=== PATIENT | female | born 1995 | race Caucasian/White ===

== ENCOUNTER 2020-01-30 14:26 | Outpatient (REF) | payer OTHER, SELFPAY ==
[2020-01-30 14:42] LABS: COVID-19 Test Positive (Negative)
== END 2020-01-30 14:27 | disposition home or self-care (01) ==
LOC: HO.EMPCOV 14:26
PROVIDERS: Visit Provider Internal Medicine
DX: Z20.828 Contact with and (suspected) exposure to other viral communicable diseases (principal)
CPT/HCPCS: 87635; C9803

== ENCOUNTER 2020-02-13 11:45 | Outpatient (REF) | payer OTHER, SELFPAY ==
[2020-02-13 13:50] LABS: Hematocrit 44.3 % (37-47); Hemoglobin 14.7 g/dl (12.0-16.0); Mean Corpuscular HGB Conc 33.2 g/dl (31.0-35.0); Mean Corpuscular Hemoglobin 26.9 pg (27.0-33.0); Mean Platelet Volume 9.5 fL (9.4-12.3); Platelet Count 316 X10*3/uL (160-400); Red Blood Count 5.47 X10*6/uL (4.20-5.50); White Blood Count 6.1 X10*3/uL (4.8-10.8)
[2020-02-13 14:33] LABS: Alanine Aminotransferase 61 U/L (0-31); Albumin Level 4.7 g/dL (3.5-5.0); Alkaline Phosphatase 61 U/L (39-117); Anion Gap 14 (12-20); Aspartate Amino Transferase 24 U/L (5-31); Bilirubin Direct 0.3 mg/dL (0.0-0.5); Bilirubin Total 0.7 mg/dL (0.0-1.0); Blood Urea Nitrogen 9 mg/dL (9-16); Calcium 9.1 mg/dL (8.4-10.2); Carbon Dioxide 26 mmol/L (22-29); Chloride 104 mmol/L (96-108); Cholesterol 170 mg/dL; Estimated Glomerular Filt Rate > 60; Glucose Random 84 mg/dL (60-115); HDL Cholesterol 32 mg/dL; LDL Cholesterol Calculated 73 mg/dl; Sodium 139 mmol/L (135-145); Total Protein 7.6 g/dL (6.5-8.0); Triglycerides 327 mg/dL
[2020-02-13 14:43] LABS: TSH reflex Free T4 1.87 mIU/mL (0.32-4.0)
== END 2020-02-13 11:46 | disposition home or self-care (01) ==
LOC: HO.WFDLDS 11:45
PROVIDERS: PCP Hospitalist; Visit Provider Hospitalist
DX: Z00.00 Encounter for general adult medical examination without abnormal findings (principal); Z13.220 Encounter for screening for lipoid disorders; Z13.29 Encounter for screening for other suspected endocrine disorder
CPT/HCPCS: 36415; 80048; 80061; 80076; 84443; 85027

== ENCOUNTER 2020-03-23 09:01 | Outpatient (REF) | payer OTHER, SELFPAY ==
[2020-03-23 09:23] LABS: COVID-19 Test Negative (Negative)
== END 2020-03-23 09:02 | disposition home or self-care (01) ==
LOC: HO.EMPCOV 09:01
PROVIDERS: Visit Provider Internal Medicine
DX: Z20.822 Contact with and (suspected) exposure to COVID-19 (principal)
CPT/HCPCS: 36415; 87635; C9803

== ENCOUNTER 2020-12-17 08:20 | Outpatient (REF) | payer OTHER, SELFPAY ==
[2020-12-17 11:44] LABS: Appearance Urine TURBID; Color Urine YELLOW; Glucose Urine UA NEG (NEG); Leukocyte Esterase Urine NEG (NEG); Nitrite Urine NEG (NEG); Specific Gravity - Urine 1.025 (1.005-1.025); Urine Blood TRACE (NEG); Urine Ketones NEG (NEG); Urine Protein NEG (NEG-TRACE)
[2020-12-17 11:48] LABS: Alanine Aminotransferase 24 U/L (0-31); Albumin Level 4.2 g/dL (3.5-5.0); Alkaline Phosphatase 45 U/L (39-117); Anion Gap 11 (12-20); Aspartate Amino Transferase 14 U/L (5-31); Bilirubin Total 0.6 mg/dL (0.0-1.0); Blood Urea Nitrogen 7 mg/dL (9-16); Carbon Dioxide 21 mmol/L (22-29); Chloride 108 mmol/L (96-108); Estimated Glomerular Filt Rate > 60; Glucose Fasting 97 mg/dL (60-99); Potassium 4.3 mmol/L (3.3-5.1); Sodium 136 mmol/L (135-145)
[2020-12-17 12:05] LABS: TSH reflex Free T4 2.95 uIU/mL (0.32-4.0)
[2020-12-17 12:52] LABS: Amorphous Sediment Urine 3+ /LPF
[2020-12-17 12:53] LABS: Squamous Epithelial Cell Urine 1+ /LPF
[2020-12-17 12:54] LABS: RBC Urine 0-2 /HPF (0); WBC Urine 0 /HPF (0-4)
== END 2020-12-17 08:21 | disposition home or self-care (01) ==
LOC: HO.WFDLDS 08:20
PROVIDERS: Visit Provider Family Medicine
DX: Z00.00 Encounter for general adult medical examination without abnormal findings (principal)
CPT/HCPCS: 36415; 80053; 81001; 84443

== ENCOUNTER → 2021-12-24 09:37 | Outpatient (RCR) | payer OTHER, SELFPAY ==
[2020-01-17 06:45] LABS: COVID-19 Test Negative (Negative)
[2020-01-27 11:15] LABS: COVID-19 Test Negative (Negative); IDNOW Serial# 55D5AD1C
== END | disposition home or self-care (01) ==
LOC: HO.EMPCOV 01-17 06:15
PROVIDERS: Visit Provider Internal Medicine
DX: Z20.828 Contact with and (suspected) exposure to other viral communicable diseases (principal)
CPT/HCPCS: 87635; C9803

== ENCOUNTER 2022-12-18 11:35 | Outpatient (AMB) | payer OTHER, SELFPAY ==
--- NOTE | 2022-12-18 11:39 | MHC.PC.OV ---
Vital Signs 12/18/22 11:40 Height 5 ft 3 in Weight 216 lb 6 oz BMI 38.3 BP 112/66 Blood Pressure Location Lt brachial Position Sitting Respiration 12 Pulse 98 Pulse Source Pulse Oximeter Temp 97.7 F Temp Source Temporal Artery Scan Pulse Oximetry (%) 98 Oxygen Delivery Method Room Air Intake Visit Reasons: Stomach Ache/ Acid reflux Intake Note: Patient is looking to get referral to gastro. Patient states that her stomach pain is like a burning that gets even worse during the night. Patient states that burning sensationg reaches to her sternum area and she experiences alot of bloating. Brush Maker Required: No Accompanied by: Self / Same As Patient Allergies No Known Allergies Allergy (Verified 12/18/22 12:11) Medication List - Last Reconciled 12/18/22 by Luis Pabon CNP No Known Home Meds Tobacco use date assessed: 12/18/22 Dental Screening Dental Screen Date: 12/18/22 Did you have a dental visit in the last 12 months?: No Did you have a dental problem in the last 6 months where you did not have access to dental care?: No Was dental information given to patient?: Yes HPI HPI Comments History of Present Illness Details 26-year-old female presents with complaints of intermittent epigastric pain for almost 1 week. She describes the pain as burning, worse with eating and at night. She reports associated loose stools. She states that Mylanta and Pepto-Bismol have provided temporary relief. No n/v or changes in bowel habits. Her last office visit with her PCP was 2 years ago. 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 Cognitive needs: No Hearing needs: No Vision needs: No Review of Systems Const Details: Const Denies chills, Denies fatigue, Denies fever(s), Denies headache(s) and Denies weakness ENT Denies dizziness and Denies headache(s) Card Denies chest pain, Denies lightheadedness, Denies dyspnea and Denies other (Palpitations) Resp Denies cough, Denies dyspnea, Denies wheezing and Denies other ( shortness of breath) GI Reports as per HPI Denies hematuria and Denies dysuria Musc Denies abnormal gait, Denies myalgias, Denies arthralgias, Denies numbness and Denies tingling Skin/Breast Denies rash, Denies unusual bruising and Denies wounds Neuro Denies abnormal gait, Denies dizziness, Denies headache(s), Denies memory loss, Denies numbness, Denies Sensory deficit (Neuro), Denies tingling and Denies weakness Psych Denies anxiety, Denies depression, Denies memory loss Endo Denies cold intolerance, Denies fatigue, Denies heat intolerance, Denies polydipsia and Denies polyuria Aller/Immun Denies wheezing Physical exam (Primary Care) Vital Signs: Last Vital Signs Temp 97.7 F 12/18/22 11:40 Pulse 98 12/18/22 11:40 Resp 12 12/18/22 11:40 BP 112/66 12/18/22 11:40 Pulse Ox 98 12/18/22 11:40 Oxygen Delivery Method Room Air 12/18/22 11:40 BMI result Body Mass Index 38.3 Tobacco/Smoking Status: Tobacco use Status Tobacco use date assessed 12/18/22 12/18/22 11:48 Patient Tobacco Use Status Never used Tobacco 12/18/22 11:40 e-Cigarette/Vaping Use Never Used 12/18/22 11:40 Const Other: General: no acute distress and well developed Nutritional Appearance: well nourished Orientation/consciousness: patient oriented x3 HENMT Head: Yes normocephalic and Yes atraumatic Eyes General: appearance normal, both eyes and all related structures Pupils: Equal, round and reactive pupils present EOM: EOMs intact bilaterally Resp Effort & Inspection: normal respiratory effort Auscultation: clear to auscultation bilaterally Cardio Rate: regular rate Rhythm: regular rhythm Heart sounds: S1 normal heart sound present, S2 normal heart sound present, no gallops, no murmurs and no rubs GI Palpation (GI): No Abdominal aortic bruit present, Soft to palpation, nontender, No hepatosplenomegaly present and No Rebound tenderness present Auscultation: normal bowel sounds General: Yes no CVA tenderness Back/Spine/Pelvis Back: no CVA tenderness Cervical Spine: cervical ROM normal and No Cervical spine tenderness Thoracic/Lumbar Spine: thoraco-lumbar ROM normal, No pain with thoraco-lumbar ROM, No thoracic spinal tenderness and No lumbar spinal tenderness Extrem General: Yes normal to inspection, No edema and No calf tenderness Skin General: warm and dry. Normal skin color. Normal skin turgor Neuro General: patient oriented x3, gait normal and no focal neuro deficit Cranial nerves: Yes Equal, round and reactive pupils present Cognition (Neuro): normal cognition Gait exam (Neuro): Normal gait present Sensory Exam: No Sensory deficit (Neuro) Psych Appearance: grossly normal Affect: normal affect Attitude: cooperative Thought process: Normal thought process present Assessment and Plan Assessment & Plan (1) Acid reflux: Code(s): K21.9 - Gastro-esophageal reflux disease without esophagitis Qualifiers: Esophagitis presence: without esophagitis Qualified Code(s): K21.9 - Gastro-esophageal reflux disease without esophagitis Plan: Patient present with complaints of 1 week of epigastric pain with associated loose stools. The pain is worse with eating and at night and have been refractory to [id number] remedies. No nausea vomiting Omeprazole ordered. Take as prescribed Avoid fried or greasy foods Her former PCP is no longer with the practice. Encouraged to establish with a new PCP. Return with worsening or new symptoms Verbalized understanding and agreed with treatment plan. Medications: New omeprazole 20 mg PO DAILY 30 caps 1RF 30 days Coding Level of Care Code Est Pt Level 3 (22818) Diagnoses Gastroesophageal reflux disease without esophagitis K21.9 Esophagitis presence: without esophagitis
[2022-12-18 11:40] VITALS: BP 112/66; PULSE 98; RESP 12; TEMP 36.5; O2SAT 98; BMI 38.3
== END 2022-12-18 12:25 | disposition home or self-care (01) ==
PROVIDERS: PCP Hospitalist; Visit Provider Nurse Practitioner Family
DX: K21.9 Gastro-esophageal reflux disease without esophagitis (principal)
CPT/HCPCS: 99214

== ENCOUNTER 2023-06-21 11:13 | Outpatient (REF) | payer OTHER, SELFPAY ==
[2023-06-21 11:26] LABS: MANUAL DIFF FLAG NO
[2023-06-21 12:03] LABS: Basophils Percent Auto 0.3 % (0-2); Eosinophils Absolute Auto 0.1 X10*3/uL (0.0-0.4); Eosinophils Percent Auto 1.3 % (0-4); Hematocrit 42.1 % (37.0-47.0); Hemoglobin 13.9 g/dl (12.0-16.0); Imm Gran Abs Auto 0.02 X10*3/uL (0.00-0.03); Imm Gran Pct Auto 0.3 % (0.0-0.4); Lymphocytes Absolute Auto 2.1 X10*3/uL (1.2-4.9); Lymphocytes Percent Auto 29.2 % (20-40); Mean Corpuscular Hemoglobin 25.6 pg (27.0-33.0); Mean Corpuscular Volume 77.5 fL (80.0-98.0); Mean Platelet Volume 9.1 fL (9.4-12.3); Monocytes Absolute Auto 0.7 X10*3/uL (0.1-1.2); Monocytes Percent Auto 9.3 % (2-11); Neutrophils Absolute Auto 4.2 x10*3/uL (2.0-8.3); Neutrophils Percent Auto 59.6 % (45-73); Platelet Count 282 X10*3/uL (160-400); Red Blood Count 5.43 X10*6/uL (4.20-5.50); Red Cell Distribution Width 13.7 % (11.0-16.0); White Blood Count 7.1 X10*3/uL (4.8-10.8)
[2023-06-21 12:13] LABS: Estimated Average Glucose 108 mg/dL; Hemoglobin A1c % 5.4 % (<6.0)
[2023-06-21 12:31] LABS: Alanine Aminotransferase 26 U/L (0-31); Albumin Level 4.6 g/dL (3.5-5.0); Alkaline Phosphatase 61 U/L (39-117); Anion Gap 13 (12-20); Aspartate Amino Transferase 17 U/L (5-31); Bilirubin Total 0.6 mg/dL (0.0-1.0); Blood Urea Nitrogen 7 mg/dL (9-16); Calcium 9.8 mg/dL (8.4-10.2); Carbon Dioxide 25 mmol/L (22-29); Chloride 105 mmol/L (96-108); Cholesterol 193 mg/dL (<200); Estimated Glomerular Filt Rate > 60; Glucose Random 91 mg/dL (60-115); HDL Cholesterol 38 mg/dL (>40); LDL Cholesterol Calculated 116 mg/dL (<100); Potassium 3.8 mmol/L (3.3-5.1); Sodium 139 mmol/L (135-145); Total Protein 7.9 g/dL (6.5-8.0); Triglycerides 198 mg/dL (<150)
== END 2023-06-21 11:14 | disposition home or self-care (01) ==
LOC: HO.LAB 11:13
PROVIDERS: PCP Internal Medicine; Visit Provider Internal Medicine
DX: Z00.01 Encounter for general adult medical examination with abnormal findings (principal); E28.2 Polycystic ovarian syndrome; I10 Essential (primary) hypertension; L70.8 Other acne
CPT/HCPCS: 36415; 80053; 80061; 83036; 85025

== ENCOUNTER 2024-01-28 09:15 | Outpatient (AMB) | payer OTHER, SELFPAY ==
--- NOTE | 2024-01-28 09:24 | A.OFFVIS_ITS ---
Vital Signs 01/28/24 09:25 Height 5 ft 3 in Weight 212 lb BMI 37.6 BP 118/78 Intake Visit Reasons: PCOS/Referral/DO NOT RS Radio Engineering Teacher Required: No Radio Engineering Teacher Services: Radio Engineering Teacher Present Information Interpreted: clinical only Tetryl Blender Operator: Tetryl Blender Operator Present Allergies No Known Allergies Allergy (Verified 01/28/24 09:25) Medication List - Last Reconciled 01/28/24 by Abigail Nguyen CNM omeprazole 20 mg PO DAILY 30 days Is last menstrual period known: Yes Last menstrual period: 01/12/24 HPI HPI PCOS/Referral/DO NOT RS: Details: Is here to talk about PCOS she was diagnosed with PCOS as a teenager at [facility]. She has had a variety primary care providers and her current [address] Soto I am unable to see her notes in the system. She had a period of several months last year with no. And she started on control pills but she still did not get a. She also did not really like how she felt on them she went off the pills in November and then she started getting a period she got a period in December on the to and it was heavier and longer than usual and then she had a period on to the 13 of January. She is wondering if there is anything else she can do to regulate her periods other than a control method. She struggled with her weight a lot she did start with a therapist a couple of years ago gave her tools to manage her anxiety so that she could potentially turned to those tools instead of stress eating. She has been told that [facility] she has high blood pressures so she has been watching so and she does try to monitor her weight but she has trouble choosing the best thing is to and she would love to see forming machine tender she is did not wait though she does not think she interested surgery this time she would like do it more naturally if she could she was wondering about medications for weight loss but has not approached her doctor about that yet. She thinks her last Pap smear was 4 years ago she is not sexually active she does not need control from that point of view and she is not for seeing any sexual activity any time soon. 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 Cognitive needs: No Hearing needs: No Vision needs: No Female Reproductive History Menstrual Age of Menarche: 10 Duration of menses: 3-5 days Date of last menstrual period: 01/12/24 control method: none Total pregnancies: 0 History of abnormal pap smear: No (previous pap 4 yrs ago,neg.( per patient)) Physical Exam Vital Signs: Last Vital Signs BP 118/78 01/28/24 09:25 BMI result Body Mass Index 37.6 Assessment & Plan Assessment & Plan (1) History of PCOS: Code(s): Z87.42 - Personal history of other diseases of the female genital tract Category: Medical (2) Anxiety with depression: Code(s): F41.8 - Other specified anxiety disorders Category: Medical (3) Obesity (BMI 35.0-39.9 without comorbidity): Code(s): E66.9 - Obesity, unspecified Category: Medical Plan ---Discussed with pt, her wt, and BMI, and her goals. Discussed ideal dietary guidelines to assist in weight loss, focusing on vegetables and fruits and lean proteins, and minimizing fats and carbohydrates and eliminating empty calories. Discussed exercise, including regular, sufficient, and consistent cardio based exercise, and weight bearing exercise. Discussed barriers to exercise and healthy eating, and possible ways of establishing newer healthier habits. Discussed supports to help in her efforts, and timing issues. Discussed adequate sleep, and ways to achieve this. Discussed adequate water ---Discussed PCOS in general and specifically about the interplay of the abnormal hormonal milieu related to being overweight, with the elevations of many hormone levels, including testosterone and estrogen, as well as others that contribute to cycles that are anovulatory and therefore prolonged, and when periods do come they come very heavy, and can contribute to lots of cramping, with passage of clots and anemia. Discussed the common symptoms related to the elvated hormonal levels, including increased facial hair, male pattern hair thinning, acne, and increased central abdominal girth. Discussed the interplay with difficulty getting when desired, but still possible, and therefore the need to contracept as appropriate and when needed. Discussed the role of weight loss as the primary, most important, and most likely to succeed, intervention, in achieving healthier status as regards PCOS, and ovulatory regular cycles. Additionally the very important relationship to elevated insulin levels, and bl ood sugars, and high risk of pre diabetes, progressing to diabetes as well as other metabolic syndromes related to this was discussed. Also discussed common interventions for some of the above, including if appropriate, use of oral contraceptives, and progestin iuds, and provera. intake.-- For now she is not interested in control pills since her periods have returned and are more normal the last 2 months I did tell her that if she ever misses period and certainly she misses 3 periods then that is a reason to take action and she would need a medication to bring her menses on to bring n she would need control pills or some other method to regulate her cycle. Main and most important thing is to really be working on losing the weight because PCOS is really just a syndrome that is related to all of the other metabolic changes that occur when we are overweight and the changes can take time to become evident but they are constantly happening and prevention and the sooner she loses the weight the better. I tried to place a nutrition referral but was unable to in the system as I could not locate the [facility] endocrinology nutrition in the pull up she is going to check with her primary care provider about this discussed very much adding aerobic exercise 30-60 minute today. Reschedule for a pressing machine operator annual and Pap as well. 45 min [id number] reviewing all of the above and more, Coding Level of Care Code New Pt Level 3 (29457) Diagnoses History of PCOS Z87.42 Anxiety with depression F41.8 Obesity (BMI 35.0-39.9 without comorbidity) E66.9
[2024-01-28 09:25] VITALS: BP 118/78; BMI 37.6
== END 2024-01-28 10:22 | disposition home or self-care (01) ==
PROVIDERS: PCP Internal Medicine; Visit Provider Advanced Practice Midwife
DX: Z87.42 Personal history of other diseases of the female genital tract (principal); F41.8 Other specified anxiety disorders; E66.9 Obesity, unspecified
CPT/HCPCS: 99203

== ENCOUNTER → 2024-01-28 09:15 | Outpatient (BNVA) | payer OTHER, SELFPAY | PROVIDERS: PCP Internal Medicine; Visit Provider Advanced Practice Midwife | DX: F41.8 Other specified anxiety disorders (principal); E66.9 Obesity, unspecified; Z87.42 Personal history of other diseases of the female genital tract | CPT/HCPCS: 99202 ==

== ENCOUNTER 2024-05-18 11:26 | Outpatient (AMB) | payer OTHER, SELFPAY ==
--- NOTE | 2024-05-18 11:32 | MHC.OFFVIS ---
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 She has been working on the weight loss it is so challenging. She is paying attention to what she is eating and she is trying to minimize carbs and eat more vegetables. She tends to eat a lot more night also also she has noticed that if she eats something very sweet she can be very sleepy afterwards and she is learning to pay attention to all these patterns. She will be seeing her primary care provider Dr. scott in June. She believes she got a whole lot of lab work she looked on the portal and does not was flagged to her. 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 She also did 1 year prerequisites at [employer] for nursing She is not sexually active now and has no plans to be. She knows that the weight is affecting her blood pressure so she was very much wanting to get ahead of that. 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 Cognitive needs: No Hearing needs: No Vision needs: No Female Reproductive History Menstrual Age of Menarche: 10 Duration of menses: 3-5 days Date of last menstrual period: 05/18/24 control method: none Total pregnancies: 0 Date of last pap smear: 04/06/19 (negative(per patient)) History of abnormal pap smear: No Physical Exam Vital Signs: Last Vital Signs BP 118/66 05/18/24 11:35 BMI result Body Mass Index 38.6 Const General: healthy appearing, comfortable, no acute distress, well developed and alert Nutritional Appearance: average body habitus Orientation/consciousness: patient oriented x3 Limitations: no limitations HEENT Head: Yes normocephalic Neck Neck: Yes normal visual inspection Chest Other: Patient has rash she areas underneath both breasts. They were slightly pink flesh colored not excoriated or inflamed patient says it does not itch or burn. Chest palpation & inspection: normal inspection of the chest Breast/axilla inspection: normal inspection of the breasts and normal inspection of the axillae Breast/axilla palpation: normal palpation of the breasts and normal palpation of the axillae Resp Effort & Inspection: normal respiratory effort GI Inspection: Yes normal to inspection, No Abdominal wall edema and No distended Palpation (GI): Soft to palpation and nontender Other: Vagina healthy appearing normal appearing menses cervix nulliparous pink tightly closed uterus smooth midposition mobile nontender difficult feel entirely but nontender adnexa nontender good tone Kegel. General: Yes bladder normal to palpation External Female Exam: normal external appearance and normal appearance of the urethra Speculum Exam - Vagina: normal appearance of the vagina, normal palpation and normal vaginal discharge Speculum Exam - Cervix: normal appearance of the cervix, normal palpation and nontender Bimanual exam- vagina & uterus: normal bimanual exam, normal palpation, uterine size normal, bladder normal to palpation, consistency normal, normal palpation, uterine mobility normal, uterine shape normal, No Cervical tenderness present, non-tender and no cervical motion tenderness Bimanual Exam- Adnexa, other: normal adnexae, no masses, normal and No adnexal tenderness Neuro General: patient oriented x3 Assessment & Plan Assessment & Plan (1) History of PCOS: Code(s): Z87.42 - Personal history of other diseases of the female genital tract Category: Medical (2) Anxiety with depression: Code(s): F41.8 - Other specified anxiety disorders Category: Medical (3) Obesity (BMI 35.0-39.9 without comorbidity): Code(s): E66.9 - Obesity, unspecified Category: Medical (4) Well woman exam with routine gynecological exam: Code(s): Z01.419 - Encounter for gynecological examination (general) (routine) without abnormal findings Category: Medical Plan -----Discussed in this visit the following: healthy balanced diet, regular and consistent exercise, getting recommended health screens, doing the best she can for her particular health concerns, kegel exercises, pap smear screening and followup recommendations, mammography screening and SBE, normal changes in cycles in her life stage--- She sought out help from a therapist a couple of years ago just to learn some tools that she can have available to her and she has found 1 in particular very helpful that is journaling and also she has put into practice a a practice of being grateful at the end of the day and that has been very helpful. . ---Discussed PCOS in general and specifically about the interplay of the abnormal hormonal milieu related to being overweight, with the elevations of many hormone levels, including testosterone and estrogen, as well as others that contribute to cycles that are anovulatory and therefore prolonged, and when periods do come they come very heavy, and can contribute to lots of cramping, with passage of clots and anemia. Discussed the common symptoms related to the elvated hormonal levels, including increased facial hair, male pattern hair thinning, acne, and increased central abdominal girth. Discussed the interplay with difficulty getting when desired, but still possible, and therefore the need to contracept as appropriate and when needed. Discussed the role of weight loss as the primary, most important, and most likely to succeed, intervention, in achieving healthier status as regards PCOS, and ovulatory regular cycles. Additionally the very important relationship to elevated insulin levels, and blood sugars, and high risk of pre diabetes, progressing to diabetes as well as other metabolic syndromes related to this was discussed. Also discussed common interventions for some of the above, including if appropriate, use of oral contraceptives,---Discussed with pt, her wt, and BMI, and her goals. Her periods have returned to normal so that is helpful in that she does not need to intervene in any of the above ways Discussed ideal dietary guidelines to assist in weight loss, focusing on vegetables and fruits and lean proteins, and minimizing fats and carbohydrates and eliminating empty calories. Discussed exercise, including regular, sufficient, and consistent cardio based exercise, and weight bearing exercise. Discussed barriers to exercise and healthy eating, and possible ways of establishing newer healthier habits. Discussed supports to help in her efforts, and timing issues. Discussed adequate sleep, and ways to achieve this. Discussed adequate water intake.-- Discussed very common experience for people who are very caring care provider's to have all their energy and focus care care for and not having time and care for themselves urged trying to find some time for healthier self-care and figuring out ways to incorporate a fast walk or other exercise into her day she is going to be meeting her provider because apparently though not evident this record she has had some elevated blood pressures as well so if she does have any other abnormalities that might help her qualify then for any the weight loss medications that maybe benefit to her that might be helpful it also may not be available. Discussed other strategies she has as well if she becomes sexually active I recommend condoms and she could call any time to be seen RTC otherwise. Pap done today as well as testing for STIs just to be very thorough, Orders: Orders Pap Smear Today Z00.00 - Encounter for general adult medical examination without abnormal findings Bacterial Vaginosis Panel Today N89.8 - Other specified noninflammatory disorders of vagina CT NG by PCR Today N89.8 - Other specified noninflammatory disorders of vagina Coding Level of Care Code Est Pt Prev Care 18-39y(31767) Diagnoses History of PCOS Z87.42 Anxiety with depression F41.8 Obesity (BMI 35.0-39.9 without comorbidity) E66.9 Well woman exam with routine gynecological exam Z01.419
[2024-05-18 11:35] VITALS: BP 118/66; BMI 38.6
== END 2024-05-18 12:09 | disposition home or self-care (01) ==
LOC: HO.HWSM 11:26
PROVIDERS: PCP Internal Medicine; Visit Provider Advanced Practice Midwife
DX: Z01.419 Encounter for gynecological examination (general) (routine) without abnormal findings (principal); F41.8 Other specified anxiety disorders; E66.9 Obesity, unspecified
CPT/HCPCS: 99395; 99459

== ENCOUNTER 2024-05-18 11:26 | Outpatient (REF) | payer OTHER, SELFPAY ==
[2024-05-19 11:40] LABS: CT PCR NOT DETECTED (Not Detect.); NG PCR NOT DETECTED (Not Detect.)
[2024-05-19 11:45] LABS: Bacterial Vaginosis PCR NEGATIVE (Negative); Candida Group PCR NOT DETECTED (Not Detect); Candida glab krusei PCR NOT DETECTED (Not Detect); Trichomonas vaginalis PCR NOT DETECTED (Not Detect)
[2024-05-26 09:14] LABS: HPV Genotype 16 Negative (Negative); HPV Genotype 18 Negative (Negative); HPV High Risk Negative (Negative)
== END 2024-05-18 11:27 | disposition home or self-care (01) ==
LOC: HO.LNP 11:26
PROVIDERS: PCP Internal Medicine; Visit Provider Advanced Practice Midwife
DX: Z01.419 Encounter for gynecological examination (general) (routine) without abnormal findings (principal); N89.8 Other specified noninflammatory disorders of vagina; Z87.42 Personal history of other diseases of the female genital tract; F41.8 Other specified anxiety disorders; E66.9 Obesity, unspecified
CPT/HCPCS: 81515; 87491; 87591; 87626; 88175; 99395; 99459

== ENCOUNTER 2024-05-18 11:55 | Outpatient (REF) | payer OTHER, SELFPAY | END 2024-05-18 11:56 | disposition home or self-care (01) | LOC: HO.LAB 11:55 | PROVIDERS: Visit Provider Advanced Practice Midwife | DX: Z13.89 Encounter for screening for other disorder (principal) ==

== ENCOUNTER 2024-10-13 07:59 | Outpatient (REF) | payer OTHER, SELFPAY ==
[2024-10-13 08:25] LABS: Hemoglobin A1C 122.3272 umol/L; Total Hemoglobin (HGBA1C) 3310.4384 umol/L
[2024-10-13 08:39] LABS: Alanine Aminotransferase 24 U/L (0-31); Albumin Level 4.6 g/dL (3.5-5.0); Alkaline Phosphatase 64 U/L (39-117); Anion Gap 12 (12-20); Aspartate Amino Transferase 25 U/L (5-31); Blood Urea Nitrogen 7 mg/dL (9-16); Calcium 9.1 mg/dL (8.4-10.2); Carbon Dioxide 27 mmol/L (22-29); Chloride 105 mmol/L (96-108); Cholesterol 193 mg/dL (<200); Estimated Glomerular Filt Rate > 60; HDL Cholesterol 38 mg/dL (>40); Potassium 3.8 mmol/L (3.3-5.1); Sodium 140 mmol/L (135-145); Total Protein 7.4 g/dL (6.5-8.0); Triglycerides 112 mg/dL (<150)
== END 2024-10-13 08:00 | disposition home or self-care (01) ==
LOC: HO.LAB 07:59
PROVIDERS: PCP Internal Medicine; Visit Provider Internal Medicine
DX: Z00.01 Encounter for general adult medical examination with abnormal findings (principal); K21.9 Gastro-esophageal reflux disease without esophagitis; E28.2 Polycystic ovarian syndrome; G47.33 Obstructive sleep apnea (adult) (pediatric); R51.9 Headache, unspecified; I10 Essential (primary) hypertension
CPT/HCPCS: 36415; 80053; 80061; 83036